=== PATIENT | male | born 1985 | race African-American/Black ===

== ENCOUNTER 2018-07-03 00:03 | Emergency (ER) | payer OTHER ==
[2018-07-03] MEDS ORDERED: Adacel (T-DAP) 0.5 ML VIAL ONE (04:14)
--- NOTE | 2018-07-03 09:49 | RAD ---
2 VIEWS CHEST: Date: 07/03/18 PROVIDED CLINICAL HISTORY: Pain status post injury. FINDINGS: Cardiac and mediastinal silhouette is within normal limits. Lungs appear clear. No pleural fluid or p neumothorax apparent. IMPRESSION: No evidence of acute cardiopulmonary process. POS: [facility]
--- NOTE | 2018-07-03 09:50 | RAD ---
LEFT RIB SERIES 3 VIEWS: Date: 07/03/18 PROVIDED CLINICAL HISTORY: Chest pain status post injury. FINDINGS: No evidence for a displaced left-sided rib fracture, pleural fluid, or pneumothorax. IMPRESSION: As above. POS: [facility]
--- NOTE | 2018-07-03 09:57 | MRI ---
PRELIMINARY REPORT/[facility]/EMERGENTY AFTER-HOURS PROCEDURE Addendum created by Pelon Salguero MD on 07/03/2018 2:47 AM Central Time ([place] & [place]) Findings were di scussed with Jeff Bettencourt at 07/03/2018 2:47 AM CDT. Initial Report created on 07/03/2018 2:39 AM Central Time ([place] & [place]) MR Cervical Spine Without Intravenous Contrast EXAM DATE/TIME: Exam ordered 07/03/2018 1:50 AM CLINICAL HISTORY: 32 years old, male; Pain; Neck pain; Patient HX: Neck and bilateral arm pain, no surgery, no prev, Fe ll TECHNIQUE: Magnetic resonance images of the cervical spine without intravenous contrast in multiple planes. COMPARISON: No relevant prior studies available. FINDINGS: Vertebrae: Normal. No acute fracture. Spinal cord: Normal. Normal signal. Soft tissues: Normal. Vasculature: Normal. Normal vertebral artery flow voids are visualized. DISCS/SPINAL CANAL/NEURAL FORAMINA: C2-C3: Normal. No significant disc disease. No stenosis. C3-C4: Normal. No significant disc disease. No stenosis. C4-C5: The C4-C5 there is a mild disc osteophyte complex which mildly narrows the ventral thecal berkley l resulting in mild stenosis. C5-C6: At C5-C6 there is a moderate disc osteophyte complex indenting the thecal sac and spinal cord resulting in moderate spinal stenosis. C6-C7: Normal. No significant disc disease. No stenosis. C7-T1: Normal. No significant disc disease. No stenosis. IMPRESSION: Moderate spinal stenosis at C5-C6 on the basis of disc osteophyte complex. Thank you for allowing us to participate in the care of your patient. Dictated and Authenticated by: Pelon Salguero MD 07/03/2018 2:39 AM Central Time ([place] & [place]) FINAL REPORT: MRI CERVICAL SPINE: HISTORY: Neck and arm pain. TECHNIQUE: Multiplanar, multisequence, noncontrast enhanced MRI of the cervical spine obtained. FINDINGS: The images demonstrate some compression of the thecal sac at the C5-C6 and C6-C7 levels, due to broad -based disk bulge, as this was a congenitally narrowed spinal canal. C1-C2: Unremarkable. C2-C3: Unremarkable. C3-C4: There is a mild broad-based disk bulge. No significant evidence of thecal sac compression se en. There is moderate to severe bilateral C3-C4 neural foraminal narrowing due to uncovertebral oste ophyte hypertrophy. C4-C5: Disk desiccation is seen. There is a broad-based disk osteophyte complex centrally, compress ing the thecal sac, resulting in mild to moderate compression of the thecal sac. There is moderate r ight and moderate to severe left C4-C5 neural foraminal narrowing due to uncovertebral osteophyte hyp ertrophy. C5-C6: There is a large broad-based central disk osteophyte complex compressing the thecal sac, resu lting in moderate to severe thecal sac and moderate cord compression. There is moderate bilateral ne ural foraminal narrowing due to uncovertebral osteophyte hypertrophy. C6-C7: There is a small right paracentral C6-C7 disk protrusion, minimally but not significantly com pressing the thecal sac. The neural foramen are patent. C7-T1: Unremarkable. IMPRESSION: Central and neural foraminal narrowing in the mid to lower cervical spine, as described above. POS: [facility]
--- NOTE | 2018-07-05 11:36 | EKG ---
Test Reason : TRAUMA Blood Pressure : / mmHG Vent. Rate : 075 BPM Atrial Rate : 075 BPM P-R Int : 128 ms QRS Dur : 086 ms QT Int : 392 ms P-R-T Axes : 082 074 070 degrees QTc Int : 437 ms Normal sinus rhythm with sinus arrhythmia Biatrial enlargement Pulmonary disease pattern Abnormal ECG Confirmed by RAYNE WHITE DO ([id number]), editor at large YULI HI ([id number]) on 07/05/2018 11:35:39 AM Referred By: Confirmed By:RAYNE WHITE DO
== END 2018-07-03 10:29 | disposition home or self-care (01) ==
LOC: EEVIPCON 00:03 → ERS 00:03
DX: M48.02 Spinal stenosis, cervical region (principal); S01.81XA Laceration without foreign body of other part of head, initial encounter; S00.83XA Contusion of other part of head, initial encounter; I10 Essential (primary) hypertension; F17.210 Nicotine dependence, cigarettes, uncomplicated; Z79.899 Other long term (current) drug therapy; Y04.0XXA Assault by unarmed brawl or fight, initial encounter
CPT/HCPCS: 71046; 72141; 90471; 90715; 93005; G0390